=== PATIENT | female | born 1940 | race Caucasian/White ===

== ENCOUNTER 2017-10-12 10:58 | Outpatient (CLI) | payer OTHER ==
[~2017-10-12 10:58] MED LIST: ACTONEL75 MG; ADULT ASPIRIN81 MG; AMLODIPINE BESYL5 MG PO; AVALIDE 150-12.1 TA1 PO; GLIMEPIRIDE1 MG; GLIMEPIRIDE2 MG PO; ISORDIL10 MG PO; METROPOLOL; PLAVIX75 MG; SIMVASTATIN40 MG PO; SINVASTATIN; SYNTHROID50 MCG; VITAMIN A AND D; [UNRECOGNIZED DRUG - OTHER]
== END 2017-10-12 11:02 | disposition home or self-care (01) ==
LOC: SONOGRAMA 10:58
DX: E04.2 Nontoxic multinodular goiter (principal)

== ENCOUNTER 2018-03-05 10:42 | Outpatient (CLI) | payer OTHER | END 2018-03-05 10:48 | disposition home or self-care (01) | LOC: RAD 10:42 | DX: M50.90 Cervical disc disorder, unspecified, unspecified cervical region (principal) ==

== ENCOUNTER 2018-04-24 11:21 | Outpatient (CLI) | payer OTHER | END 2018-04-24 12:13 | disposition home or self-care (01) | LOC: MRI 11:21 | DX: M25.562 Pain in left knee (principal); M25.561 Pain in right knee | CPT/HCPCS: 73721 ==

== ENCOUNTER → 2018-07-01 | Outpatient (CLI) | payer OTHER | END | disposition home or self-care (01) | LOC: MRI 09:44 | DX: M54.5 Low back pain (principal) | CPT/HCPCS: 72148 ==

== ENCOUNTER 2019-01-17 08:24 | Outpatient (CLI) | payer OTHER | END 2019-01-17 08:32 | disposition home or self-care (01) | LOC: LAB 08:24 | DX: E11.21 Type 2 diabetes mellitus with diabetic nephropathy (principal); N18.1 Chronic kidney disease, stage 1; R80.8 Other proteinuria ==

== ENCOUNTER 2019-04-14 10:02 | Outpatient (CLI) | payer OTHER | END 2019-04-14 10:08 | disposition home or self-care (01) | LOC: LAB 10:02 | DX: E03.8 Other specified hypothyroidism (principal); R41.89 Other symptoms and signs involving cognitive functions and awareness; R41.3 Other amnesia; F03.90 Unspecified dementia, unspecified severity, without behavioral disturbance, psychotic disturbance, mood disturbance, and anxiety ==

== ENCOUNTER 2019-04-18 09:11 | Outpatient (CLI) | payer OTHER | END 2019-04-18 09:24 | disposition home or self-care (01) | LOC: MRI 09:11 | DX: R42 Dizziness and giddiness (principal); H93.3X9 Disorders of unspecified acoustic nerve | CPT/HCPCS: 70553; A9575; 70552 ==

== ENCOUNTER → 2019-05-05 10:40 | Outpatient (CLI) | payer OTHER | END | disposition home or self-care (01) | LOC: LAB 10:40 | DX: N18.1 Chronic kidney disease, stage 1 (principal); I10 Essential (primary) hypertension; E11.21 Type 2 diabetes mellitus with diabetic nephropathy; R80.8 Other proteinuria ==

== ENCOUNTER 2019-05-26 03:09 | Emergency (ER) | payer OTHER ==
[~2019-05-26] VITALS: Ht 152.4 cm; Wt 60.8 kg
== END 2019-05-26 06:29 | disposition designated cancer center or children's hospital (05) ==
LOC: ER 03:09 → CPU-OBS 03:13 → ER 06:29
DX: R07.89 Other chest pain (principal)

== ENCOUNTER 2019-08-14 00:37 | Emergency (ER) | payer OTHER ==
[~2019-08-14] VITALS: Ht 152.4 cm; Wt 55.3 kg
[2019-08-14] MEDS ORDERED: NAMENDA5 MG (01:15)
== END 2019-08-14 07:49 | disposition home or self-care (01) ==
LOC: ER 00:37
DX: R42 Dizziness and giddiness (principal)

== ENCOUNTER → 2019-08-18 | Outpatient (CLI) | payer OTHER ==
[~2019-08-18] MED LIST changes: +NAMENDA5 MG
== END | disposition home or self-care (01) ==
LOC: TOM 10:00
DX: G45.8 Other transient cerebral ischemic attacks and related syndromes (principal)

== ENCOUNTER 2019-08-20 10:12 | Outpatient (CLI) | payer OTHER | END 2019-08-20 10:26 | disposition home or self-care (01) | LOC: NUCLEAR 10:12 | DX: R55 Syncope and collapse (principal) ==

== ENCOUNTER → 2020-06-09 | Outpatient (CLI) | payer OTHER | END | disposition home or self-care (01) | LOC: MRI 10:07 | PROVIDERS: ATTEND Psychiatry & Neurology Clinical Neurophysiology | DX: G30.1 Alzheimer's disease with late onset (principal); C79.31 Secondary malignant neoplasm of brain; I63.30 Cerebral infarction due to thrombosis of unspecified cerebral artery | CPT/HCPCS: 70551 ==

== ENCOUNTER 2020-11-15 09:38 | Outpatient (CLI) | payer OTHER | END 2020-11-15 09:47 | disposition home or self-care (01) | LOC: MRI 09:38 | PROVIDERS: ATTEND Neuromusculoskeletal Medicine & OMM | DX: G93.89 Other specified disorders of brain (principal) | CPT/HCPCS: 70551 ==

== ENCOUNTER → 2021-02-04 | Outpatient (CLI) | payer OTHER | END | disposition home or self-care (01) | LOC: MRI 09:55 | PROVIDERS: ATTEND Orthopaedic Surgery | DX: M75.121 Complete rotator cuff tear or rupture of right shoulder, not specified as traumatic (principal); M25.511 Pain in right shoulder | CPT/HCPCS: 73221 ==

== ENCOUNTER 2021-06-17 09:23 | Outpatient (CLI) | payer OTHER | END 2021-06-17 09:47 | disposition home or self-care (01) | LOC: MRI 09:23 | PROVIDERS: ATTEND Neuromusculoskeletal Medicine & OMM | DX: G93.89 Other specified disorders of brain (principal) | CPT/HCPCS: 70551 ==

== ENCOUNTER 2024-08-28 09:38 | Outpatient (CLI) | payer OTHER | END 2024-08-28 09:47 | disposition home or self-care (01) | LOC: MRI 09:38 | PROVIDERS: ATTEND Neuromusculoskeletal Medicine & OMM | DX: F09 Unspecified mental disorder due to known physiological condition (principal); F03.90 Unspecified dementia, unspecified severity, without behavioral disturbance, psychotic disturbance, mood disturbance, and anxiety | CPT/HCPCS: 70551 ==